=== PATIENT | female | born 1975 | race Caucasian/White ===

== ENCOUNTER 2018-02-04 07:41 | Outpatient (CLI) | payer OTHER ==
[~2018-02-04 07:41] MED LIST: AMOX1TAB12 PO; AURALGAN OTIC S14 ML OT; TUSNEL LIQUID178 ML PO
== END 2018-02-04 07:44 | disposition home or self-care (01) ==
LOC: SONOGRAMA 07:41
DX: E04.2 Nontoxic multinodular goiter (principal)

== ENCOUNTER 2018-05-17 11:19 | Outpatient (CLI) | payer OTHER | END 2018-05-17 11:30 | disposition home or self-care (01) | LOC: MAMO-SONO 11:19 | DX: Z12.31 Encounter for screening mammogram for malignant neoplasm of breast (principal); N64.4 Mastodynia ==

== ENCOUNTER 2024-11-26 05:30 | Day surgery (SDC) | payer OTHER ==
[2024-11-21 08:52] VITALS: BP 130/87
[2024-11-21 08:59] LABS: HEMATOCRIT 36.6 % (36.0-45.00); HEMOGLOBIN 12.2 g/dL (12.0-15.00); MEAN CELL VOLUME 82.7 fL (80.00-100.00); MEAN CORPUSCULAR HEMOGLOBIN 27.6 pg (27.00-32.0); MEAN CORPUSCULAR HGB CONC 33.3 g/dl (32.0-36.0); PLATELET COUNT 200 K/uL (150-450); RED BLOOD COUNT 4.43 M/uL (4.00-6.00)
[2024-11-21 09:02] LABS: RED CELL DISTRIBUTION WIDTH 16.9 % (11.5-14.5)
[2024-11-21 09:18] LABS: INR 1.05; PROTHROMBIN TIME 11.4 SECONDS (9.0-11.5)
[2024-11-21 09:29] LABS: URINE APPEARANCE Clear; URINE BILIRRUBIN Negative (NEGATIVE); URINE BLOOD Negative; URINE COLOR Yellow; URINE GLUCOSE Negative (NEGATIVE); URINE KETONE Negative (NEGATIVE); URINE LEUKOCYTE Negative; URINE NITRATE Negative; URINE PROTEIN Negative (NEGATIVE); URINE UROBILINOGEN 0.2 E.U./dl
[2024-11-21 09:32] LABS: URINE BACTERIA 323.1 uL (0.0-1933); URINE RBC 8.2 uL (0.0-20.8); URINE WBC 8.8 uL (0.0-23.2)
[2024-11-21 10:14] LABS: ALBUMIN 3.8 gm/dL (3.4-5.0); BILIRUBIN TOTAL 0.42 mg/dL (0.3-1.2); CALCIUM 9.5 mg/dL (8.5-10.1); CREATININE SERUM 0.76 mg/dL (0.55-1.02); GFR 81.57; POTASSIUM 4.41 mEq/L (3.5-5.1); TOTAL PROTEIN 6.8 gm/dL (6.4-8.2)
[~2024-11-26] VITALS: Ht 157.5 cm; Wt 55.3 kg
[~2024-11-26 05:30] MED LIST changes: +METFORMIN HCL500 M3 PO; +SYNTHROID137 MCG PO
[2024-11-26] MEDS ORDERED: POVIDONE-IODINE 118 ML BOTT TOP ONE (11:52)
[2024-11-26] MEDS ORDERED: PROMETHAZINE HCL 50 MG/ML AMPUL IM ONE ×2 (14:15→15:08)
[2024-11-26] MEDS ORDERED: MORPHINE SULFATE 4 MG/ML VIAL IV PRN (14:15)
== END 2024-11-26 17:25 | disposition home or self-care (01) ==
LOC: CIR.AMB 05:30
PROVIDERS: ATTEND Obstetrics & Gynecology Gynecology
DX: D25.1 Intramural leiomyoma of uterus (principal); D25.9 Leiomyoma of uterus, unspecified; N93.8 Other specified abnormal uterine and vaginal bleeding; Z91.048 Other nonmedicinal substance allergy status; Z91.09 Other allergy status, other than to drugs and biological substances